=== PATIENT | female | born 1945 | race Caucasian/White ===

== ENCOUNTER 2016-10-24 15:50 | Inpatient (IN) | payer MEDICARE ==
[~2016-10-24] VITALS: Ht 160 cm; Wt 85.1 kg
[2016-10-24 16:49] LABS: BASOPHILS 0.4 % (0.0-2.0); EOSINOPHILS 1.5 % (0-7); HEMATOCRIT 33.5 % (36.0-48.0); IMMATURE GRANULOCYTES 0.1 % (0-5); LYMPHOCYTES 25.3 % (15-50); MCH 28.6 pg (26.0-34.0); MCHC 32.8 g/dL (31.0-37.0); MEAN PLATELET VOLUME 11.3 fL (7.4-10.4); MONOCYTES 6.3 % (2-11); NEUTROPHILS 66.4 % (40-80); RBC 3.85 10x6/uL (4.00-5.40); RDW 13.3 % (11.5-14.5); WBC 9.9 10x3/uL (4.8-10.8)
[2016-10-24 16:50] LABS: PLATELET COUNT 341 10x3/uL (130-400)
[2016-10-24 17:39] LABS: ALBUMIN 3.2 g/dL (3.4-5.0); ANION GAP 16.1 mmol/L (8-16); BILIRUBIN - TOTAL 0.18 mg/dL (0.2-1.3); CALCIUM 9.6 mg/dL (8.5-10.1); CARBON DIOXIDE 29.1 mmol/L (21.0-32.0); CREATININE - SERUM 1.5 mg/dL (0.6-1.3); POTASSIUM - SERUM 5.2 mmol/L (3.5-5.1); PROTEIN - SERUM 8.3 g/dL (6.4-8.2)
[2016-10-24 17:56] LABS: APPEARANCE HAZY (CLEAR); BILIRUBIN NEGATIVE (NEGATIVE); COLOR YELLOW (YELLOW); GLUCOSE NEGATIVE (NEGATIVE); KETONE NEGATIVE (NEGATIVE); LEUKOCYTE ESTERASE 2+ (NEGATIVE); NITRITE POSITIVE (NEGATIVE); PROTEIN 2+ mg/dL (NEGATIVE); UROBILINOGEN NORMAL (NORMAL)
[2016-10-24 17:57] LABS: BACTERIA MODERATE /hpf (NONE SEEN); EPITHELIAL CELLS 0-5 /hpf (0-5); MUCUS <1+ /lpf (NONE SEEN); RED CELLS - URINE 0-5 /hpf (0-5)
[2016-10-25] VITALS (7 sets, daily range): BP systolic 152–178; BP diastolic 59–98; BMI 30.3
[2016-10-25] MEDS ORDERED: CATAPRES0.1 MG PT (01:49)
[2016-10-25] MEDS ORDERED: NEXIUM40 MG PT (01:50)
[2016-10-25] MEDS ORDERED: NOVOLIN R100 U/ML SQ (01:55)
[2016-10-25] MEDS ORDERED: LANTUS INSULIN10 ML SC (01:56)
[2016-10-25] MEDS ORDERED: PROMOD LIQUID P30 M1 PT (01:56)
[2016-10-25] MEDS ORDERED: EFFEXOR37.5 MG PT (01:57)
[2016-10-25] MEDS ORDERED: FEOSOL LIQ300 MG/5 M PEG (01:58)
[2016-10-25] MEDS ORDERED: IPRAT-ALBUT 0.5-3 ML UPD (01:59)
[2016-10-25] MEDS ORDERED: ULTRAM50 MG PT (01:59)
[2016-10-25] MEDS ORDERED: ASPIRIN325 MG PT (02:00)
[2016-10-25] MEDS ORDERED: ZOFRAN4 MG PT (02:01)
[2016-10-25] MEDS ORDERED: ASCORBIC ACID500 MG PT (02:02)
[2016-10-25] MEDS ORDERED: ZINC-220220 MG PT (02:02)
[2016-10-25] MEDS ORDERED: PRAVACHOL40 MG PT (02:03)
[2016-10-25] MEDS ORDERED: NORCO 7.5/325 T1 TA1 PT (02:03)
[2016-10-25] MEDS ORDERED: MELATONIN10 M1 PT (02:04)
[2016-10-25] MEDS ORDERED: METOPROLOL TART50 MG PT (02:04)
[2016-10-25] MEDS ORDERED: ZESTRIL20 MG PT (02:04)
[2016-10-25] MEDS ORDERED: BUSPIRONE HCL7.5 MG PT (02:05)
[2016-10-25] MEDS ORDERED: CRANBERRY 400 M1 TA1 PT (02:05)
[2016-10-25] MEDS ORDERED: PLAVIX75 MG PT (02:05)
[2016-10-25] MEDS ORDERED: BENADRYL25 MG PT (02:06)
[2016-10-25] MEDS ORDERED: LIDODERM 5 %1 PATCH TRANSDERM (02:06)
[2016-10-25] MEDS ORDERED: XALATAN 0.0052.5 ML EACH EYE (02:07)
[2016-10-25] MEDS ORDERED: GLUCERNA 1.5 C237 M1 PEG (02:08)
--- NOTE | 2016-10-25 04:56 | NUR ---
10/24/16 @ 23:45, PT RECEIVED VIA STRETCH FROM ER. PT AWAKE, AND ALERT, DAUGHTER AT BEDSIDE. PT IS A RESIDENT OF [facility] LIVING IN [place]. SARMAD IBRAHIM, TOBACCO DIPPER FOR [employer], PAGED @ 00:30 AND AUTHORIZED IMMEDIATE ORDERS FOR PTS PRN NORCO, METOPROLOL, INSULIN, TUBE FEEDINGS, AND VARIOUS OTHERS. PT DOES HAVE A STAGE IV DECUB THAT WAS CAUSED FROM A 3 WEEK STAY AT [facility] 3 YEARS AGO. PT WENT IN FOR A CAROTIDENDARTERECTOMY AND SUFFERED A STROKE ON THE TABLE PER DAUGHTER. THE DECUB WAS CAUSED FROM THAT INITIAL STAY. PT HAS HAD A RECENT PEG TUBE PLACED R/T DYSPHAGIA, AND HAS A CHRONIC CALHOUN CATHETER. TELEMETRY PLACED ON PT SHOWS ST 133, METOPROLOL GIVEN. GLUCERNA 1.5 RUNNING @ 55MLS/HR WITH 50ML/HR FLUSH THROUGH PATENT PEG TUBE. PTS BED IS LOW, CALL LIGHT IN REACH, DAUGHTER REMAINS AT BEDSIDE, HOB 35 DEGREES, SIDE RAILS X 2. PT HAD BILATERAL FOOT DROP WITH THE RIGHT BEING MORE PROMINENT THAN THE LEFT. CONTINUE TO MONITOR CLOSELY. ALSO, PTS CHRONIC PAIN IS CURRENTLY NOT MANAGED WELL THE PRN NORCO 7.5.
[2016-10-25 06:10] LABS: BASOPHILS 0.3 % (0.0-2.0); EOSINOPHILS 0.1 % (0-7); HEMATOCRIT 30.6 % (36.0-48.0); HEMOGLOBIN 9.9 g/dL (12-16); IMMATURE GRANULOCYTES 0.3 % (0-5); LYMPHOCYTES 18.6 % (15-50); MCHC 32.4 g/dL (31.0-37.0); MCV 86.4 fL (80.0-100.0); MONOCYTES 4.4 % (2-11); NEUTROPHILS 76.3 % (40-80); PLATELET COUNT 340 10x3/uL (130-400); RBC 3.54 10x6/uL (4.00-5.40); RDW 13.3 % (11.5-14.5); WBC 10.5 10x3/uL (4.8-10.8)
[2016-10-25 06:25] LABS: ANION GAP 13.1 mmol/L (8-16); CALCIUM 9.2 mg/dL (8.5-10.1); CREATININE - SERUM 1.7 mg/dL (0.6-1.3); POTASSIUM - SERUM 5.1 mmol/L (3.5-5.1)
--- NOTE | 2016-10-25 07:18 | NUR ---
PT RESTING COMFORTABLY. NO SS OF DISTRESS AT THIS TIME. WILL CONTINUE TO MONITOR.
--- NOTE | 2016-10-25 08:18 | NUR ---
PATIENT NON-VERBAL, ABLE TO SAY YES AND NO ONLY. DAUGHTER IN ROOM WITH PATIENT5. TELEMTRY INTACT. CALHOUN CATH DRAING CLEAR YELLOW URINE. LEFT HAND PHER. LINE HAS N/X AT 50CCF/HR. NPO. FEEDING TUBE. GLUCERNIA 1.5
--- NOTE | 2016-10-25 12:21 | NUR ---
GLUCOSE LEVEL 247. FOUR UNITS OF SLIDING SCALE INSUIN GIVEN
--- NOTE | 2016-10-25 14:36 | NUR ---
WOUND CARE CONSULT: FAMILIAR WITH THIS PT. 71 Y/0 FEMALE RESIDENT OF [facility] IN [place] WITH A HISTORY OF CHRONIC PRESSURE INJURY ON COCCYX. IT MEASURES 5CM X 7CM X 1CM. WOUND BED IS PINK WITH YELLOW NECROTIC TISSUE. NO ODOR IS NOTED. CURRENT TREATMENT IS SANTYL. RECOMMEND CONTINUING. ALSO NOTED A STAGE 1 PRESSURE INJURY TO RIGHT BUTTOCK MEASURING 3CM X 1CM. NON-BLANCHING. AIR OVERLAY MATTRESS PLACED ON BED. PT IS BEING TURNED/REPOSITIONED Q2H. HEELS BRIDGED. SANTYL CONTINUED. WOUND CARE WILL CONTINUE TO MONITOR.
[2016-10-25 14:40] LABS: ERYTHROCYTE SEDIMENTATION RATE 110 mm/hr (0-30)
--- NOTE | 2016-10-25 14:46 | NUR ---
MADINA, WOUND CARE NURSE IN ROOM. DOING DRESSING TO BOTTOM. FIRST STEP MATTRESS APPLIED TO BED
--- NOTE | 2016-10-25 16:35 | NUR ---
LOVONOX SQ GIVEN FOR PREVENTION OF DVT
--- NOTE | 2016-10-25 17:36 | NUR ---
PATIENT CONTIUE NPO. FEEDING OF GLUERNA 1.5 AT 55CC/HR
--- NOTE | 2016-10-25 19:40 | NUR ---
RESUMED CARE OF PT, FAMILY AT BEDSIDE, FEEDING TUBE GLUCERNA-1.5 @ 55ML, 50 ML FLUSH, IV-L.HAND-NS@ 100, 1st MATTRESS, BED IS LOW, SRX3, CALL LIGHT IN REACH, WILL CONTINUE TO [facility]
[2016-10-26 01:33] VITALS: BP 116/52
--- NOTE | 2016-10-26 01:52 | NUR ---
CHANGED FEEDING BAG AND TUBING
[2016-10-26 02:50] LABS: CREATININE - URINE 23.5 mg/dL (30-125); PRO/CRE RATIO URINE 2.3 mg/g
[2016-10-26 02:54] LABS: APPEARANCE CLEAR (CLEAR); BILIRUBIN NEGATIVE (NEGATIVE); COLOR YELLOW (YELLOW); GLUCOSE NEGATIVE (NEGATIVE); KETONE NEGATIVE (NEGATIVE); LEUKOCYTE ESTERASE TRACE (NEGATIVE); NITRITE NEGATIVE (NEGATIVE); PH 8.5 (5.0-6.0); PROTEIN TRACE mg/dL (NEGATIVE); SPECIFIC GRAVITY 1.005 (1.005-1.020); UROBILINOGEN NORMAL (NORMAL)
[2016-10-26 03:04] LABS: WHITE CELLS - URINE 0-5 /hpf (0-5)
[2016-10-26 03:05] LABS: BACTERIA FEW /hpf (NONE SEEN); EPITHELIAL CELLS OCC /hpf (0-5); RED CELLS - URINE OCC /hpf (0-5); TRIPLE PHOSPHATE CRYSTALS 0-5 /hpf (NONE SEEN)
[2016-10-26 06:04] VITALS: BP 170/50
--- NOTE | 2016-10-26 06:18 | NUR ---
PT SLEEPING, DAUGHTER AT BEDSIDE, CALL LIGHT IN REACH
--- NOTE | 2016-10-26 07:00 | NUR ---
PT WAS RECEIVED AT THE BEGINNING OF THIS SHIFT IN BED AWAKE AND ORIENTED TO SELF. LEFT HAND HAS IV WITH NS GOING AT 100ML'S/HR RATE OF FLOW. TUBE FEEDING GLUCERNA 1.5 GOING AT 55ML'S/HR AND WATER FLUSHES Q 1 HOUR AT 50ML'S. COLOSTOMY BAG ON AND IS SECURE. CALHOUN CATHETER IS PATENT AND DRAINING YELLOW URINE TO GRAVITY DRAINAGE BAG SYSTEM. PT IS TOTAL CARE. PT WILL BE TURNED AND REPOSITIONED Q 2 HRS. FOR COMFORT AND CIRCULATION PURPOSES. DAUGHTER AT BEDSIDE. NO SIGNS OF ANY DISCOMFORT OR DISTRESS.
[2016-10-26 07:47] VITALS: BP 149/67
[2016-10-26 11:31] VITALS: BP 176/65
[2016-10-26 11:32] LABS: BASOPHILS 0.6 % (0.0-2.0); EOSINOPHILS 3.3 % (0-7); HEMOGLOBIN 10.1 g/dL (12-16); IMMATURE GRANULOCYTES 0.3 % (0-5); LYMPHOCYTES 23.7 % (15-50); MCH 28.1 pg (26.0-34.0); MCHC 31.6 g/dL (31.0-37.0); MEAN PLATELET VOLUME 10.7 fL (7.4-10.4); MONOCYTES 5.1 % (2-11); PLATELET COUNT 306 10x3/uL (130-400); RDW 13.3 % (11.5-14.5)
[2016-10-26 11:33] LABS: MCV 88.9 fL (80.0-100.0)
[2016-10-26 11:48] LABS: ANION GAP 13.5 mmol/L (8-16); CALCIUM 8.9 mg/dL (8.5-10.1); CARBON DIOXIDE 27.4 mmol/L (21.0-32.0); CREATININE - SERUM 1.3 mg/dL (0.6-1.3); POTASSIUM - SERUM 4.9 mmol/L (3.5-5.1)
[2016-10-26 13:16] VITALS: Ht 160 cm; Wt 85.1 kg
[2016-10-26 15:35] VITALS: BP 168/71
--- NOTE | 2016-10-26 17:49 | NUR ---
PT. WAS GIVEN A NORCO 7.5MG AROUND 4:30PM PER REQUEST FOR HER BOTTOM AREA HURTING. NEW ORDER RECEIVED TO CHANGE FEEDING TO GLUCERNA 1.0 NOHELIA AT 75ML/HR AND FLUSH WITH 25ML OF WATER Q 1 HOUR.
--- NOTE | 2016-10-26 19:50 | NUR ---
PT RESTING IN BED WITH SON AT BEDSIDE. ALERT, BUT ONLY ANSWERS YES/NO AND THEN SOMETIMES THAT IS NOT RELIABLE ACCORDING TO HER SON. SEE SHIFT ASSESSMENT. CPOC.
--- NOTE | 2016-10-26 19:52 | NUR ---
DR GUTIÉRREZ IN ROOM ASSESSING PATIENT AT THIS TIME.
[2016-10-26 20:00] VITALS: BP 173/66
[2016-10-27 01:06] LABS: ERYTHROCYTE SEDIMENTATION RATE 48 mm/hr (0-30)
[2016-10-27 01:22] LABS: ALBUMIN 2.5 g/dL (3.4-5.0); ANION GAP 12.3 mmol/L (8-16); BILIRUBIN - TOTAL 0.18 mg/dL (0.2-1.3); CALCIUM 8.9 mg/dL (8.5-10.1); CARBON DIOXIDE 28.1 mmol/L (21.0-32.0); CREATININE - SERUM 1.3 mg/dL (0.6-1.3); POTASSIUM - SERUM 4.4 mmol/L (3.5-5.1); PRE-ALBUMIN 28.3 mg/dL (18.0-35.7); PROTEIN - SERUM 7.4 g/dL (6.4-8.2)
[2016-10-27 04:00] VITALS: BP 170/68
[2016-10-27 05:38] LABS: BASOPHILS 0.8 % (0.0-2.0); EOSINOPHILS 4.5 % (0-7); HEMATOCRIT 31.2 % (36.0-48.0); HEMOGLOBIN 10.2 g/dL (12-16); IMMATURE GRANULOCYTES 0.1 % (0-5); LYMPHOCYTES 33.9 % (15-50); MCH 28.9 pg (26.0-34.0); MCHC 32.7 g/dL (31.0-37.0); MCV 88.4 fL (80.0-100.0); MEAN PLATELET VOLUME 10.8 fL (7.4-10.4); MONOCYTES 6.1 % (2-11); NEUTROPHILS 54.6 % (40-80); PLATELET COUNT 299 10x3/uL (130-400); RBC 3.53 10x6/uL (4.00-5.40); RDW 13.4 % (11.5-14.5); WBC 7.3 10x3/uL (4.8-10.8)
[2016-10-27 05:56] LABS: ANION GAP 12.5 mmol/L (8-16); CALCIUM 9.1 mg/dL (8.5-10.1); CARBON DIOXIDE 27.8 mmol/L (21.0-32.0); CREATININE - SERUM 1.2 mg/dL (0.6-1.3); POTASSIUM - SERUM 4.3 mmol/L (3.5-5.1)
--- NOTE | 2016-10-27 07:41 | NUR ---
PT SITTING UP IN BED DENEIS NEEDS WILL CONT TO MONITOR
[2016-10-27 08:56] VITALS: BP 183/67
[2016-10-27 13:34] VITALS: BP 187/84
--- NOTE | 2016-10-27 14:19 | NUR ---
PT SITTING UP IN BED WITH SON AT BEDSIDE. NO S/S DISTRESS NOTED WILL CONT TO MONITOR.
--- NOTE | 2016-10-27 15:29 | NUR ---
ORDER TO CHANGE CALHOUN. DC CURRENT CALHOUN 6CC STERILE FLUID EXTRACTED FROM BALLOON. REMOVED WITHOUT PROBLEMS. STERILE TECHNIQUE INITIATED AND PLACED NEW 16F CALHOUN WITH 10 CC STERILE FLUID INTO BALLOON. COLLECTED URINE SPECIMEN FROM CLEAN CATH ORDERED AND SENT TO LAB.
[2016-10-27 15:36] LABS: APPEARANCE CLEAR (CLEAR); BILIRUBIN NEGATIVE (NEGATIVE); COLOR YELLOW (YELLOW); GLUCOSE 50 mg/dL (NEGATIVE); KETONE NEGATIVE (NEGATIVE); LEUKOCYTE ESTERASE NEGATIVE (NEGATIVE); NITRITE NEGATIVE (NEGATIVE); PROTEIN TRACE mg/dL (NEGATIVE); UROBILINOGEN NORMAL (NORMAL)
--- NOTE | 2016-10-27 18:02 | NUR ---
Patient Name: ABBEY ORTIZ Admission Status: ER Accout number: [id number] Admission Date: 10-24-2016 : 1945 Admission Diagnosis:ACUTE KIDNEY FAILURE, UNSPECIFIED Attending: JUAN Current LOS: 3 Anticipated DC Date: 10-30-2016 Planned Disposition: Nursing Facility INGE Cert Primary Insurance: MEDICARE A & B Discharge Planning Comments: * Is the patient Alert and Oriented? Yes 0 * How many steps to enter\exit or inside your home? NONE 0 * PCP DR. CONTRERAS 0 * Pharmacy [facility] 0 * [facility]read[facility] * Facility Name [facility] 0 * ADLs Partial Dependent 0 * Partial ADLs (Assistance needed) Ambulation Bathing Dressing Medication Management Toileting Transfers 0 * Equipment Other 0 * Other Equipment ALL EQUIPMENT PROVIDED BY [facility] 0 * List name and contact numbers for known caregivers / representatives who currently or will assist patient after discharge: JACQUIE BEE, DAUGHTER, 0 * Community resources currently utilized None 0 * Please name any agencies selected above. NONE 0 * Additional services required to return to the preadmission environment? No 0 * Can the patient safely return to the preadmission environment? Yes 0 * Has this patient been hospitalized within the prior 30 days at any hospital? No 0 CM MET WITH PT AND SON JARROD, IN ROOM TO DISCUSS DISCHARGE PLANNING AND NEEDS. PT HAS SOME PROBLEMS WITH SPEECH, PT'S SON REPORTS PT HAS LIVED AT [facility] FOR THE LAST THREE YEARS. PT INDICATES SHE IS HAPPY THERE AND FEELS SAFE. PT IS DEPENDENT UPON [facility] STAFF FOR HER CARE AND REQUIRES A LIFT FROM BED TO WHEELCHAIR. PT INDICATES, SON REPORTS PT WILL RETURN TO [facility] FOR CONTINUED CELLULAR EQUIPMENT REPAIRER CARE AT DISCHARGE. IMPORTANT MESSAGE FROM MEDICARE PROVIDED AND EXPLAINED. FOR DISCHARGE BACK TO [facility], NURSE REPORT TO BE CALLED TO [facility] AT [phone], FAX DISCHARGE INFORMATION TO [facility] AT [phone]. PT TO TRANSPORT VIA AMBULANCE. Cap Sewer: Geovany Romero
[2016-10-27 18:15] VITALS: BP 182/84
--- NOTE | 2016-10-27 19:35 | NUR ---
RECEIVED REPORT, FAMILY AT BEDSIDE, R.PICC-NS @100, PEG-1.0 GLUERNA-75, FLUSH-25, DRESSING TO BOTTOM, BED IS LOW, 1st MATTRESS, SRX3, CALL LIGHT IN REACH, WILL CONNTINUE TO MONITOR
[2016-10-27 22:19] VITALS: BP 193/73
[2016-10-28 01:26] VITALS: BP 185/88
--- NOTE | 2016-10-28 01:49 | NUR ---
CHANGED FEEDING TUBE BAG
[2016-10-28 04:29] VITALS: BP 211/97
--- NOTE | 2016-10-28 07:00 | NUR ---
RECEIVED REPORT. ASSUMED CARE OF PATIENT. CALL LIGHT WITHIN REACH. FAMILY AT BEDSIDE. 1ST STEP OVERLAY PATENT. RESP EVEN AND UNLABORED. PATIENT SLIGHTLY ANXIOUS ABOUT BONE SCAN TODAY. DOROTHY FROM RADIOLOGY AT BEDSIDE FOR BLOOD DRAW FOR SPECIAL PROCEDURE TODAY AND EXPLAINING TIME FRAME AND DETAILS OF TEST TO FAMILY AND PATIENT. TUBE FEEDING PATENT. DENIES NEEDS AT THIS TIME. NO DISTRESS.
[2016-10-28 09:04] VITALS: BP 187/83
--- NOTE | 2016-10-28 11:00 | NUR ---
PATIENT LEFT UNIT FOR RADIOLOGY TO HAVE RADIUM INFUSED BLOOD INFUSED BACK INTO PATIENT FOR BONE SCAN THIS AFTERNOON. NO DISTRESS.
--- NOTE | 2016-10-28 11:20 | NUR ---
PATIENT RETURNED TO UNIT. NO DISTRESS. IV FLUIDS INFUSING ORDERED.
--- NOTE | 2016-10-28 11:30 | NUR ---
FSBS 147. NO INSULIN ADMINISTERED PER SLIDING SCALE.
[2016-10-28 11:38] LABS: BASOPHILS 0.5 % (0.0-2.0); EOSINOPHILS 2.4 % (0-7); HEMATOCRIT 28.8 % (36.0-48.0); HEMOGLOBIN 9.3 g/dL (12-16); IMMATURE GRANULOCYTES 0.3 % (0-5); LYMPHOCYTES 26.9 % (15-50); MCH 28.4 pg (26.0-34.0); MCHC 32.3 g/dL (31.0-37.0); MCV 87.8 fL (80.0-100.0); MEAN PLATELET VOLUME 10.6 fL (7.4-10.4); MONOCYTES 5.8 % (2-11); NEUTROPHILS 64.1 % (40-80); PLATELET COUNT 295 10x3/uL (130-400); RBC 3.28 10x6/uL (4.00-5.40); RDW 13.6 % (11.5-14.5); WBC 7.8 10x3/uL (4.8-10.8)
[2016-10-28 12:36] LABS: ANION GAP 13.9 mmol/L (8-16); CALCIUM 8.5 mg/dL (8.5-10.1); CARBON DIOXIDE 26.1 mmol/L (21.0-32.0); CREATININE - SERUM 1.1 mg/dL (0.6-1.3)
--- NOTE | 2016-10-28 13:00 | NUR ---
DAUGHTER IN LAW AT BEDSIDE WASHING PATIENTS HAIR. NO DISTRESS. CALL LIGHT WITHIN REACH. PATIENT ENJOYING HER HAIR BEING WASHED.
--- NOTE | 2016-10-28 15:13 | NUR ---
PATIENT LEFT UNIT VIA BED FOR LAST PORTION OF BONE SCAN. NO DISTRESS UPON LEAVING UNIT.
--- NOTE | 2016-10-28 15:45 | NUR ---
TURNED AND REPOSITIONED. WOUND CARE PROVIDED TO SACRAL/COCCYX WOUND DRAINGE SOAKED THROUGH MEPILEX. TOLERATED WOUND CARE WELL. NO DISTRESS. CALL LIGHT WITHIN REACH.
[2016-10-28 16:19] VITALS: BP 193/83
--- NOTE | 2016-10-28 17:17 | NUR ---
FSBS 214. 4 UNITS INSULIN ADMINISTERED PER SLIDING SCALE AT THIS TIME. NO DISTRESS.
--- NOTE | 2016-10-28 19:03 | NUR ---
SITTING UP IN BED, AWAKE AND ALERT, SKIN WARM AND DRY, RESP UNLABORED, IV PATENT TO RIGHT PICC, PEG TUBE INTACT WITH GLUCERNA INFUSING AT 75CC/HR, COLOSTOMY BAG FULL OF SOFT BROWN STOOL, EMPTIED AT THIS TIME, NO DISTRESS NOTED
[2016-10-28 20:59] VITALS: BP 160/75
--- NOTE | 2016-10-28 23:26 | NUR ---
HEEL VARNISHER AT BEDSIDE FOR VS. NEEDS ADDRESSED, CALL LIGHT IN REACH. WILL CONT TO MONITOR.
[2016-10-29] VITALS (7 sets, daily range): BP systolic 180–201; BP diastolic 74–88
[2016-10-29 06:04] LABS: BASOPHILS 0.9 % (0.0-2.0); EOSINOPHILS 3.2 % (0-7); HEMATOCRIT 32.3 % (36.0-48.0); HEMOGLOBIN 10.1 g/dL (12-16); IMMATURE GRANULOCYTES 0.1 % (0-5); LYMPHOCYTES 32.3 % (15-50); MCH 27.7 pg (26.0-34.0); MCHC 31.3 g/dL (31.0-37.0); MCV 88.7 fL (80.0-100.0); MEAN PLATELET VOLUME 10.6 fL (7.4-10.4); MONOCYTES 6.3 % (2-11); NEUTROPHILS 57.2 % (40-80); PLATELET COUNT 322 10x3/uL (130-400); RBC 3.64 10x6/uL (4.00-5.40); RDW 13.4 % (11.5-14.5)
[2016-10-29 06:32] LABS: ANION GAP 12.3 mmol/L (8-16); CALCIUM 9.2 mg/dL (8.5-10.1); CARBON DIOXIDE 27.5 mmol/L (21.0-32.0); CREATININE - SERUM 1.2 mg/dL (0.6-1.3); POTASSIUM - SERUM 3.8 mmol/L (3.5-5.1)
--- NOTE | 2016-10-29 07:00 | NUR ---
RECEIVED REPORT. ASSUMED CARE OF PATIENT. CALL LIGHT WITHIN REACH. FAMILY AT BEDSIDE. IV FLUIDS AND TUBE FEEDING INFUSING ORDERED. 1ST STEP OVERLAY PATENT. COMMUNICATION DEFICT NOTED DUE TO SPEECH, THIS IS NOT NEW. DENIES NEEDS. NO DISTRESS.
--- NOTE | 2016-10-29 08:01 | NUR ---
TURNED AND REPOSITIONED. CALL LIGHT WIHTIN REACH. NO DISTRESS.
--- NOTE | 2016-10-29 12:07 | NUR ---
FSBS 286. 6 UNITS HUMULIN ADMINISTERED PER SLIDING SCALE.
--- NOTE | 2016-10-29 15:50 | NUR ---
WOUND CARE PROVIDED TO SACRAL WOUND AT THIS TIME. NO DISTRESS.
--- NOTE | 2016-10-29 17:45 | NUR ---
FSBS 206. 4 UNITS HUMULIN ADMINISTERED PER SLIDING SCALE. TURNED AND REPOSITIONED. CALL LIGHT WITHIN REACH. NO DISTRESS.
--- NOTE | 2016-10-29 22:39 | NUR ---
PT RECEIVED IN BED WITH EYES OPEN WATCHING TV AND SON AT BEDSIDE. NO SIGN/SYMPTOMS OF DISTRESS NOTED. RECEIVED MEDICATIONS CRUSHED VIA PEG TUBE PER MAR WITHOUT DIFFICULTY. CONTINOUS FEEDING RUNNING GLUCERNA AT 75ML/HR. CALL LIGHT IN REACH.
[2016-10-30 02:31] VITALS: BP 194/74
[2016-10-30 04:45] VITALS: BP 190/70
[2016-10-30 05:42] LABS: BASOPHILS 0.7 % (0.0-2.0); EOSINOPHILS 4.6 % (0-7); HEMATOCRIT 29.4 % (36.0-48.0); HEMOGLOBIN 9.3 g/dL (12-16); IMMATURE GRANULOCYTES 0.1 % (0-5); LYMPHOCYTES 32.7 % (15-50); MCH 27.9 pg (26.0-34.0); MCHC 31.6 g/dL (31.0-37.0); MCV 88.3 fL (80.0-100.0); MEAN PLATELET VOLUME 10.4 fL (7.4-10.4); NEUTROPHILS 54.9 % (40-80); PLATELET COUNT 301 10x3/uL (130-400); RBC 3.33 10x6/uL (4.00-5.40); RDW 13.4 % (11.5-14.5); WBC 8.6 10x3/uL (4.8-10.8)
[2016-10-30 05:59] LABS: ANION GAP 10.8 mmol/L (8-16); CALCIUM 8.8 mg/dL (8.5-10.1); CARBON DIOXIDE 27.8 mmol/L (21.0-32.0); CREATININE - SERUM 1.1 mg/dL (0.6-1.3); POTASSIUM - SERUM 3.6 mmol/L (3.5-5.1)
--- NOTE | 2016-10-30 06:26 | NUR ---
PT IN BED WITH EYES OPEN WITH NO CONCERNS NOTED AT THIS TIME. MEDICATIONS GIVEN PER MAR VIA PEG TUBE WITHOUT DIFFICULTY. FSBS 188 WITH 2 UNITS OF HUMULIN R GIVEN PER SLIDING SCALE. CALL LIGHT IN REACH.
--- NOTE | 2016-10-30 07:34 | NUR ---
RECEIVED REPORT. WILL CONTINUE PLAN OF CARE. NO OTHER NEEDS AT THIS TIME. WILL CONTNUE TO [facility].
[2016-10-30 07:58] VITALS: BP 187/82
[2016-10-30 11:48] VITALS: BP 145/59
--- NOTE | 2016-10-30 14:27 | NUR ---
PT IS ALERT. ASSESSMENT DONE PER FLOWSHEET. NO OTHER NEEDS AT THIS TIME. WILL CONTINUE TO MONITOR. NO OTHER NEEDS.
[2016-10-30 16:40] VITALS: BP 139/59
[2016-10-30 21:02] VITALS: BP 177/79
[2016-10-31 00:14] VITALS: BP 143/76
--- NOTE | 2016-10-31 04:24 | NUR ---
NURSE ROUNDS 21:00 - PT LYING IN BED, AWAKE, ALERT, FAMILY AT BEDSIDE. PT DENIES ANY NEEDS. CONTINUE TO MONITOR CLOSELY.
[2016-10-31 05:11] VITALS: BP 119/56
[2016-10-31 05:14] LABS: BASOPHILS 0.3 % (0.0-2.0); EOSINOPHILS 3.7 % (0-7); HEMATOCRIT 30.1 % (36.0-48.0); HEMOGLOBIN 9.7 g/dL (12-16); IMMATURE GRANULOCYTES 0.1 % (0-5); LYMPHOCYTES 9.3 % (15-50); MCH 28.4 pg (26.0-34.0); MCHC 32.2 g/dL (31.0-37.0); MCV 88.3 fL (80.0-100.0); MEAN PLATELET VOLUME 10.8 fL (7.4-10.4); MONOCYTES 4.1 % (2-11); NEUTROPHILS 82.5 % (40-80); PLATELET COUNT 291 10x3/uL (130-400); RBC 3.41 10x6/uL (4.00-5.40); RDW 13.7 % (11.5-14.5); WBC 8.7 10x3/uL (4.8-10.8)
[2016-10-31 05:53] LABS: ANION GAP 11.6 mmol/L (8-16); CALCIUM 8.6 mg/dL (8.5-10.1); CREATININE - SERUM 1.3 mg/dL (0.6-1.3); POTASSIUM - SERUM 3.6 mmol/L (3.5-5.1)
--- NOTE | 2016-10-31 06:51 | NUR ---
PT LYING IN BED, EYES CLOSED, RESPIRATIONS EVEN AND UNLABORED. PT EASILY ROUSABLE TO VERBAL STIMULI. IV TUBING CHANGED TO NS, PEG FLUSHES EASILY AND INFUSING PROPERLY. PT TURNED TO LEFT SIDE. CONTINUE TO MONITOR CLOSELY. FAMILY AT BEDSIDE.
--- NOTE | 2016-10-31 07:05 | NUR ---
RECEIVED REPORT. ASSUMED CARE OF PATIENT. CALL LIGHT WITHIN REACH. RESTING WITH EYES CLOSED, EASILY AROUSED, PATIENTS SON AT BEDSIDE. 1ST STEP OVERLAY PATENT. IV FLUIDS INFUSING ORDERED. RESP EVEN AND UNLABORED. NO DISTRESS.
[2016-10-31 07:56] VITALS: BP 178/73
--- NOTE | 2016-10-31 11:57 | NUR ---
FSBS 238. 4 UNITS INSULIN ADMINISTERED PER SLIDING SCALE. NO DISTRESS. COLOSTOMY EMPTIED AT THIS TIME.
[2016-10-31 12:03] VITALS: BP 145/62
--- NOTE | 2016-10-31 13:14 | NUR ---
Patient Name: ABBEY ORTIZ Encounter No: [id number] : 1945 Primary Insurance: MEDICARE A & B Anticipated DC Date: 10-30-2016 Planned Disposition: Nursing Facility INGE Cert External Planned Provider: [facility] SKILLED BED DCP follow-up note: CM RECEIVED CALL FROM [facility], CLINICAL LIAISON FOR [facility]. CM PROVIDED UPDATE AND NEED FOR IV ANTIBIOTICS AND REQUESTED TO KNOW IF THIS CAN BE DONE AT THE [facility]. CM FAXED UPDATE WITH CURRENT MAR TO [facility] OF [facility], . CM CALLED [facility], , SPOKE TO VEE WHO WILL HAVE MAY CALL SHORTLY AFTER FAX REVIEW. CM SPOKE TO PT AND SON IN ROOM, BOTH IN AGREEMENT WITH DISCHARGE BACK TO [facility] SOON POSSIBLE AND IS WILLING FOR IV MEDICATION THERE. IMPORTANT MESSAGE FROM MEDICARE PROVIDED AND EXPLAINED. CM WAITING TO SEE IF [facility] CAN PROVIDE IV ANTIBIOTICS ORDERED. IF ACCEPTED, NURSE REPORT TO BE CALLED TO [facility] AT [phone], FAX DISCHARGE INFORMATION TO [facility] AT [phone]. PT TO TRANSPORT VIA AMBULANCE. Oyster Sorter: Geovany Romero
--- NOTE | 2016-10-31 13:56 | NUR ---
WOUND CARE COMPLETED BY STUDENT PN NURSE AND NURSE INSTRUCTOR. PATIENT TOLERATED WOUND CARE WELL.
[2016-10-31] MEDS ORDERED: ZOSYN 3.3753.375 G1 IV (14:54)
[2016-10-31] MEDS ORDERED: NORVASC10 MG PO (14:55)
[2016-10-31] MEDS ORDERED: FLORAJEN3 CAPS460 MG PO (15:01)
[2016-10-31] MEDS ORDERED: VANCOMYCIN250 MG/51 PO (15:03)
--- NOTE | 2016-10-31 15:15 | NUR ---
Patient Name: ABBEY ORTIZ Encounter No: [id number] : 1945 Primary Insurance: MEDICARE A & B Anticipated DC Date: 10-31-2016 Planned Disposition: Nursing Facility INGE Cert External Planned Provider: [facility], MEDICARE REHAB BED DCP follow-up note: CM RECEIVED CALL FROM [facility] CLINICAL LIAISON FOR [facility] , THEY CAN PROVIDE IV ANTIBIOTICS ORDERED AND WILL ACCEPT TODAY. CM NOTIFIED BEDSIDE NURSE, PT AND SON IN ROOM AND BLOSSOM IBRAHIM. CM FAXED DISCHARGE INFORMATION TO [facility] AT [phone] NURSE REPORT TO BE CALLED TO [facility] AT [phone]. PT TO TRANSPORT VIA AMBULANCE. Operator Weapon Locating Radar: Geovany Romero
[2016-10-31 15:59] VITALS: BP 144/54
--- NOTE | 2016-10-31 16:55 | NUR ---
REPORT CALLED TO TANNER KILPATRICK AT [facility] IN [place].
--- NOTE | 2016-10-31 16:58 | NUR ---
[facility] CALLED AND GIVEN REPORT. STATED IT WILL BE ABOUT ONE HOUR BEFORE THEY CAN GET HERE TO PICK PATIENT UP.
--- NOTE | 2016-10-31 17:15 | NUR ---
20 GAUGE IV SITE TO LEFT HAND REMOVED. CATHETER TIP INTACT. NO BLEEDING FROM SITE. 2X2 GAUZE APPLIED AND SECURED WITH TAPE. TOLERATED IV REMOVAL WELL. PATIENT DISCHARGING TO [facility].
--- NOTE | 2016-10-31 17:21 | NUR ---
FABA 125. NO INSULIN ADMINISTERED PER SLIDING SCALE.
--- NOTE | 2016-10-31 17:45 | NUR ---
FSBS 125. NO INSULIN ADMINISTERED PER SLIDING SCALE.
--- NOTE | 2016-10-31 18:59 | NUR ---
PATIENT LEFT VIA EMS AT THIS TIME IN NO ACUTE DISTRESS. PATIENT BEING DISCHARGED BACK TO [facility] IN [place].
== END 2016-10-31 19:00 | DRG 682 ==
LOC: D.ER 15:50 → D.M2 18:51
PROVIDERS: Emergency Medicine; Internal Medicine Nephrology; Student in an Organized Health Care Education/Training Program; Surgery; ADMIT Family Medicine
PROC: 02HV33Z Insertion of Infusion Device into Superior Vena Cava, Percutaneous Approach (ICD-10-PCS; principal; 2016-10-27)
PROC: B548ZZA Ultrasonography of Superior Vena Cava, Guidance (ICD-10-PCS; 2016-10-27)
DX: N17.9 Acute kidney failure, unspecified (principal); L89.154 Pressure ulcer of sacral region, stage 4; R53.2 Functional quadriplegia; N39.0 Urinary tract infection, site not specified; M46.28 Osteomyelitis of vertebra, sacral and sacrococcygeal region; Z86.73 Personal history of transient ischemic attack (TIA), and cerebral infarction without residual deficits; I10 Essential (primary) hypertension; E11.65 Type 2 diabetes mellitus with hyperglycemia; Z79.4 Long term (current) use of insulin; E87.5 Hyperkalemia